=== PATIENT | male | born 1965 | race Caucasian/White ===

== ENCOUNTER 2021-06-27 23:45 | Emergency (ER) | payer OTHER ==
[2021-06-28 02:02] LABS: BASOPHIL 0.1 % (0-2); EOSINOPHIL 0.1 & (0-5); HCT 39.7 % (42.0-52.0); HGB 13.6 g/dl (13.2-18.0); LYMPHOCYTE 11.3 % (15-48); MCH 31.7 pg (25.0-31.0); MCHC 34.3 g/dL (32.0-36.0); MCV 92.5 fL (78.0-100.0); MONOCYTE 7.8 % (0-12); MPV 10.2 fL (6.0-9.5); NEUTROPHIL 80.6 % (41-80); PLT 162 K/uL (150-400); RBC 4.29 M/uL (4.70-6.00); RDW 12.4 % (11.5-14.0)
[2021-06-28 02:12] LABS: ALBUMIN 3.5 g/dL (3.4-5.0); BILIRUBIN - TOTAL 0.4 mg/dL (0.2-1.0); BUN/CREAT RATIO (CALC) 14.1 RATIO; CREATININE 0.92 mg/dL (0.67-1.17); GLOBULIN (CALCULATION) 3.5 g/dL; POTASSIUM 4.2 mmol/L (3.5-5.1)
[2021-06-28 02:17] LABS: LACTIC ACID 1.1 mmol/L (0.4-1.9)
[2021-06-28] MEDS ORDERED: IBUPROFEN800 MG PO ×2 (03:34→03:42)
[2021-06-28] MEDS ORDERED: NORCO 5-325 TA1 EACH PO ×2 (03:34→03:42)
[2021-06-28] MEDS ORDERED: ZITHROMAX500 MG PO ×2 (03:34→03:42)
[2021-06-28] MEDS ORDERED: ONDANSETRON ODT4 MG SL ×2 (03:34→03:42)
[2021-06-28] MEDS ORDERED: PULMICORT FLE180 MCG INH ×2 (03:34→03:42)
[2021-06-28] MEDS ORDERED: VENTOLIN HFA IN18 GM INH ×2 (03:34→03:42)
== END 2021-06-28 03:50 | disposition home or self-care (01) ==
LOC: FER 23:45
PROVIDERS: Emergency Medicine Emergency Medical Services
DX: U07.1 COVID-19 (principal); J12.82 Pneumonia due to coronavirus disease 2019
CPT/HCPCS: 36415; 71045; 80053; 83605; 84484; 85025; 85379; 93005; 94640; 94664; J1885; J2270; J2405; J7120

== ENCOUNTER 2021-06-30 15:41 | Inpatient (IN) | payer OTHER ==
[~2021-06-30] VITALS: Ht 177.8 cm; Wt 79.8 kg
[~2021-06-30 15:41] MED LIST: IBUPROFEN800 MG PO; NORCO 5-325 TA1 EACH PO; ONDANSETRON ODT4 MG SL; PULMICORT FLE180 MCG INH; VENTOLIN HFA IN18 GM INH; ZITHROMAX500 MG PO
[2021-06-30 18:28] LABS: BASOPHIL 0.2 % (0-2); EOSINOPHIL 0 % (0-5); HCT 42.5 % (42.0-52.0); HGB 14.1 g/dl (13.2-18.0); MCH 31.5 pg (25.0-31.0); MCHC 33.2 g/dL (32.0-36.0); MCV 95.1 fL (78.0-100.0); NEUTROPHIL 84.4 % (41-80); NRBC 0; PLT 166 K/uL (150-400); RBC 4.47 M/uL (4.70-6.00); RDW 12.9 % (11.5-14.0); WBC 9.5 K/uL (4.0-10.5)
[2021-06-30 18:44] LABS: BUN 15 mg/dL (7-18); BUN/CREAT RATIO (CALC) 14.9 RATIO; C-REACTIVE PROTEIN >18.00 mg/dL (<=0.90); CHLORIDE 104 mmol/L (98-107); CO2 (BICARBONATE) 28 mmol/L (21-32); CREATININE 1.01 mg/dL (0.67-1.17); GLUCOSE 107 mg/dL (74-106); POTASSIUM 4.1 mmol/L (3.5-5.1)
[2021-07-01 05:49] LABS: BASOPHIL 0.1 % (0-2); EOSINOPHIL 0 % (0-5); HGB 12.9 g/dl (13.2-18.0); LYMPHOCYTE 5.8 % (15-48); MCH 31.3 pg (25.0-31.0); MCHC 33.1 g/dL (32.0-36.0); MCV 94.7 fL (78.0-100.0); NEUTROPHIL 90.6 % (41-80); NRBC 0; PLT 176 K/uL (150-400); RBC 4.12 M/uL (4.70-6.00); WBC 7.9 K/uL (4.0-10.5)
[2021-07-01 06:40] LABS: ALBUMIN 2.6 g/dL (3.4-5.0); ALKALINE PHOSHATASE 53 U/L (46-116); ALT 78 U/L (16-63); AST 69 U/L (15-37); BILIRUBIN - TOTAL 0.3 mg/dL (0.2-1.0); BUN 13 mg/dL (7-18); C-REACTIVE PROTEIN >18.00 mg/dL (<=0.90); CHLORIDE 105 mmol/L (98-107); CO2 (BICARBONATE) 27 mmol/L (21-32); CREATININE 0.81 mg/dL (0.67-1.17); GLOBULIN (CALCULATION) 3.7 g/dL; GLUCOSE 150 mg/dL (74-106); LDH 356 U/L (85-227); POTASSIUM 4.8 mmol/L (3.5-5.1); TOTAL PROTEIN 6.3 g/dL (6.4-8.2)
--- NOTE | 2021-07-02 04:59 | NUR ---
PATIENT DESATED TO 87% AT 199907/01/21 ON 2LNC. OXYEGEN WAS INCREASED ON NC WITH NO IMPROVEMENT. RT WAS CONSULTED AND PATIENT WAS PLACED ON A VENTI MASK AT 50% AT 15L WITH IMPROVEMENT IN SATURATION TO 94%. PATIENT REMAINED STABLE TIL 0445 ON 07/02/21 WHEN HE BEGAN DESATING TO 74% WITH COUGHING. RT WAS CONSULTED AGAIN AND AN ALBUTEROL TX WAS GIVEN WITH IMPROVEMENT. PATIENT CONTINUED TO DESAT AND THEN STABILIZE IN BETWEEN COUGHING "FITS." CASEY DUNCAN APRN INFORMED OF PATIENT CONDITION AND UPDATED THROUGHOUT THE NIGHT. PATIENT TO TRANSFER TO TCU FOR HIGHER LEVEL OF CARE BASED ON OXYGEN NEED PROGRESSION.
[2021-07-03 10:25] LABS: BASOPHIL 0.1 % (0-2); EOSINOPHIL 0 % (0-5); HGB 13.6 g/dl (13.2-18.0); LYMPHOCYTE 3.6 % (15-48); MCHC 32.4 g/dL (32.0-36.0); MCV 95.7 fL (78.0-100.0); MONOCYTE 5.2 % (0-12); MPV 9.4 fL (6.0-9.5); NEUTROPHIL 89.9 % (41-80); NRBC 0; PLT 293 K/uL (150-400); RBC 4.39 M/uL (4.70-6.00); RDW 13.3 % (11.5-14.0); WBC 15.1 K/uL (4.0-10.5)
[2021-07-03 10:40] LABS: BUN/CREAT RATIO (CALC) 28.4 RATIO; C-REACTIVE PROTEIN 16.4 mg/dL (<=0.90); CREATININE 0.81 mg/dL (0.67-1.17); POTASSIUM 4.6 mmol/L (3.5-5.1)
[2021-07-04 07:03] LABS: ALBUMIN 2.5 g/dL (3.4-5.0); BILIRUBIN - TOTAL 0.6 mg/dL (0.2-1.0); BUN/CREAT RATIO (CALC) 35.3 RATIO; C-REACTIVE PROTEIN 12.2 mg/dL (<=0.90); CREATININE 0.68 mg/dL (0.67-1.17); GLOBULIN (CALCULATION) 4.3 g/dL; POTASSIUM 4.2 mmol/L (3.5-5.1); TOTAL PROTEIN 6.8 g/dL (6.4-8.2)
--- NOTE | 2021-07-06 01:53 | NUR ---
PATIENT BREATHING 57 RESPIRATIONS A MINUTE LAYING ON BACK, MASTER MACHINIST NOTIFIED. RESPIRATORY CALLED. PATIENT TURNED BACK TO PRONE INDEPENDENTLY, O2 IS NOW 94%.
[2021-07-06 06:19] LABS: BASOPHIL 0.9 % (0-2); EOSINOPHIL 0 % (0-5); HCT 43.8 % (42.0-52.0); HGB 14.7 g/dl (13.2-18.0); MCHC 33.6 g/dL (32.0-36.0); MCV 92.4 fL (78.0-100.0); MONOCYTE 5.3 % (0-12); MPV 9.4 fL (6.0-9.5); NEUTROPHIL 81.5 % (41-80); NRBC 0; PLT 260 K/uL (150-400); RBC 4.74 M/uL (4.70-6.00); RDW 12.7 % (11.5-14.0); WBC 19.5 K/uL (4.0-10.5)
[2021-07-06 06:39] LABS: ALBUMIN 2.6 g/dL (3.4-5.0); BILIRUBIN - TOTAL 0.9 mg/dL (0.2-1.0); BUN/CREAT RATIO (CALC) 31.9 RATIO; C-REACTIVE PROTEIN 4.3 mg/dL (<=0.90); CREATININE 0.72 mg/dL (0.67-1.17); GLOBULIN (CALCULATION) 3.9 g/dL; POTASSIUM 4.8 mmol/L (3.5-5.1); TOTAL PROTEIN 6.5 g/dL (6.4-8.2)
--- NOTE | 2021-07-06 19:35 | NUR ---
1300-DR. DYER DISCUSSED WITH PT AT LENGTH ABOUT RESP. STATUS. AND NEED FOR INTUBATION PRIOR TO IT BECOMING A EMERGENT SITUATION. 1315- PT FACETIME WITH AND FAMILY, PT SPENT SOME TIME ON FACETIME VIA HIS PHONE. 1435-PREPARING PT FOR INTUBATION, DR. DYER, LEODAN RT, GISSELLE RT AND MYSELF AT BEDSIDE. [place] RN AT DOOR TAKING DOWN TIMES 1443 30MG ETOMATE IVP GIVEN PT BEGAN TO BE BAGGED BY RT 1445 150MG IVP SUCC GIVEN [address] DYER W/O DIFFICULTY WITH SIZE 7 ET TUBE/25 AT THE LIP. PT O2 SAT 66% AND IMMEDIATLY BAGGED WITH O2 SAT INCREASING TO 98% 1449 DIPRAVAN GTT STARTED AT 25MCG/14.[address] DYER ORDERS. 1455 FENTANLY GTT STARTED AT 200 MCG OR 20ML PER DR. DYER ORDERS 1457. PT COUGHING/FIGHTING THE VENT, DESATING TO 80% 1458 VERSED 5MG IVP GIVEN, PT WAS ABLE TO RELAX AND SAT INCREASED BACK TO 94% 1501 PT COUGHING/ FIGHTING VENT DESATING TO LOW 80'S. 1502 VERSED 5MG IVP GIVEN ORDERED INCREASED BOTH FENTANYL 300MCG AND DIPRAVAN TO 50MCG GTTS PER 'S ORDERS BP 90/40 ABIEL PUSH OF 100MCG GIVEN PER DR. DYER. BP IMPROVED TO 111/59 10MG VEC IVP GIVEN 1524 PLACED AND OG TUBE/GREEN COLOR BOWEL ASPIRATED/AUSCULTATED FOR PLACEMENT 1530 VECURONIUM GTT STARTED AT 0.8MCG/46.1ML/HR 1540 TRIPLE LUMEN CENTRAL LINE PLACED BY DR. DYER. 1548 STAT CHEST XRAY DONE FOR VERFICATION OF ET TUBE/CENTRAL LINE AND OG PLACEMENT 1558 DR. DYER OKAY'S USE OF CENTRAL LINE AWAITING OFFICAL READING FOR OG TUBE USE 1608 COLMENARES CATH PLACED
--- NOTE | 2021-07-06 20:23 | NUR ---
1642- RUPA INSERTED BY DR. DYER AT BEDSIDE TO ASSIST. 1700 BIS MONTIOR READING 40. TOF 1/4 DECREASED VEC TO 0.6ML34.6 1745 BIX MONITOR READING 44. TOB 2/4 WILL CONTINUE TO MONITOR CLOSELY
--- NOTE | 2021-07-06 20:27 | NUR ---
6336- SPOKE WITH PT AND UPDATED ON PT STATUS
[2021-07-07 06:04] LABS: BASOPHIL 0.6 % (0-2); EOSINOPHIL 0.1 % (0-5); HCT 38.7 % (42.0-52.0); HGB 12.6 g/dl (13.2-18.0); MCH 31.3 pg (25.0-31.0); MCHC 32.6 g/dL (32.0-36.0); MCV 96.3 fL (78.0-100.0); MONOCYTE 5.1 % (0-12); MPV 9.9 fL (6.0-9.5); NEUTROPHIL 84.2 % (41-80); NRBC 0; PLT 188 K/uL (150-400); RBC 4.02 M/uL (4.70-6.00); RDW 13.2 % (11.5-14.0); WBC 17.9 K/uL (4.0-10.5)
[2021-07-07 06:29] LABS: BUN/CREAT RATIO (CALC) 28.2 RATIO; CREATININE 0.78 mg/dL (0.67-1.17); POTASSIUM 4.8 mmol/L (3.5-5.1)
[2021-07-08 04:56] LABS: BASOPHIL 0.1 % (0-2); EOSINOPHIL 0.1 % (0-5); HCT 37.3 % (42.0-52.0); HGB 12.1 g/dl (13.2-18.0); LYMPHOCYTE 4.3 % (15-48); MCH 31.2 pg (25.0-31.0); MCHC 32.4 g/dL (32.0-36.0); MCV 96.1 fL (78.0-100.0); MONOCYTE 5.4 % (0-12); MPV 10.2 fL (6.0-9.5); NEUTROPHIL 78.3 % (41-80); NRBC 0; PLT 234 K/uL (150-400); RBC 3.88 M/uL (4.70-6.00); RDW 13.4 % (11.5-14.0); WBC 18.2 K/uL (4.0-10.5)
[2021-07-08 05:16] LABS: ALBUMIN 2.1 g/dL (3.4-5.0); BILIRUBIN - TOTAL 0.6 mg/dL (0.2-1.0); BUN/CREAT RATIO (CALC) 32.4 RATIO; CREATININE 0.68 mg/dL (0.67-1.17); MAGNESIUM 2.3 mg/dL (1.8-2.4); POTASSIUM 4.5 mmol/L (3.5-5.1); TOTAL PROTEIN 6.1 g/dL (6.4-8.2)
[2021-07-09 04:17] LABS: BASOPHIL 0.8 % (0-2); EOSINOPHIL 0.2 % (0-5); HCT 33.5 % (42.0-52.0); HGB 10.9 g/dl (13.2-18.0); LYMPHOCYTE 3.4 % (15-48); MCH 31.1 pg (25.0-31.0); MCHC 32.5 g/dL (32.0-36.0); MCV 95.7 fL (78.0-100.0); MONOCYTE 7.1 % (0-12); MPV 9.9 fL (6.0-9.5); NRBC 0; PLT 244 K/uL (150-400); RDW 13.1 % (11.5-14.0); WBC 19.5 K/uL (4.0-10.5)
[2021-07-09 04:33] LABS: BUN 22 mg/dL (7-18); BUN/CREAT RATIO (CALC) 31.9 RATIO; CHLORIDE 103 mmol/L (98-107); CO2 (BICARBONATE) 33 mmol/L (21-32); CREATININE 0.69 mg/dL (0.67-1.17); GLUCOSE 147 mg/dL (74-106); MAGNESIUM 2.3 mg/dL (1.8-2.4); PHOSPHORUS 2.8 mg/dL (2.6-4.7)
--- NOTE | 2021-07-09 07:16 | NUR ---
0716- SPOKE WITH PT DAUGHTER JOSELINE ABOUT PT STATUS. PT IS INTUBATED & SEDATED ON DIPRAVAN, FENTANYL & VECRONIUM. PT IS NOT ALERT BUT WILL MOVE TOUNGE AROUND IN MOUTH. VS ARE 129/71 (89), HR 71, RR 28, 02 90%, ABP 119/65 (82), BIS 31. PT ON X2DESYX, BILAT EXTREMITIES ELEVATED ON PILLOWS, SCD;S PLACED, TUBE FEEDS @ 55ML/HR.
--- NOTE | 2021-07-09 14:10 | NUR ---
Nutrition Follow Up: Pt continues sedated/intubated with continuous TF. Jevity 1.2 running at goal of 55ml/hr and proteinex ONS BID. Wt noted on 07/09/21 is 212#, possible discrepancy with wt hx during this admission. No new n/v/d/c indicated, BS noted as hypoactive, LBM 07/06/21. No new wounds of concern, trace edema to BUE noted. No additional recommendation att. Continue current nutrition POC. RD will follow up 2-3x per week per protocol. ~Griselda Newman, MS, RDN, LD
[2021-07-09 23:43] LABS: BILIRUBIN NEGATIVE (NEGATIVE); BLOOD NEGATIVE Ery/uL (NEGATIVE); CLARITY CLEAR (CLEAR); COLOR YELLOW (YELLOW); GLUCOSE (U) NORMAL (NORMAL); LEUKOCYTES NEGATIVE Leu/uL (NEGATIVE); NITRITE NEGATIVE (NEGATIVE); PROTEIN NEGATIVE (NEGATIVE); SPECIFIC GRAVITY 1.025 (1.001-1.030)
[2021-07-09 23:49] LABS: URINARY RBC RARE
[2021-07-10 05:31] LABS: BASOPHIL 0 % (0-2); EOSINOPHIL 0.3 % (0-5); HCT 36.8 % (42.0-52.0); HGB 11.9 g/dl (13.2-18.0); LYMPHOCYTE 3.7 % (15-48); MCH 31.1 pg (25.0-31.0); MCHC 32.3 g/dL (32.0-36.0); MCV 96.1 fL (78.0-100.0); MONOCYTE 8.6 % (0-12); NEUTROPHIL 76.8 % (41-80); NRBC 0.1; PLT 349 K/uL (150-400); RBC 3.83 M/uL (4.70-6.00); RDW 13.2 % (11.5-14.0)
[2021-07-10 05:36] LABS: WBC 25.8 K/uL (4.0-10.5)
[2021-07-10 05:37] LABS: BUN/CREAT RATIO (CALC) 43.9 RATIO; C-REACTIVE PROTEIN 4.9 mg/dL (<=0.90); CREATININE 0.57 mg/dL (0.67-1.17); POTASSIUM 4.3 mmol/L (3.5-5.1)
[2021-07-11 04:38] LABS: BASOPHIL 0.1 % (0-2); EOSINOPHIL 0.6 % (0-5); HCT 37.6 % (42.0-52.0); HGB 12.1 g/dl (13.2-18.0); LYMPHOCYTE 3.7 % (15-48); MCH 31.2 pg (25.0-31.0); MCHC 32.2 g/dL (32.0-36.0); MCV 96.9 fL (78.0-100.0); MONOCYTE 11.6 % (0-12); MPV 10.1 fL (6.0-9.5); NEUTROPHIL 72.1 % (41-80); NRBC 0; PLT 372 K/uL (150-400); RBC 3.88 M/uL (4.70-6.00); RDW 13.4 % (11.5-14.0); WBC 22.6 K/uL (4.0-10.5)
[2021-07-11 05:05] LABS: BUN/CREAT RATIO (CALC) 37.3 RATIO; CREATININE 0.67 mg/dL (0.67-1.17); POTASSIUM 4.3 mmol/L (3.5-5.1)
[2021-07-12 03:20] LABS: BASOPHIL 0 % (0-2); EOSINOPHIL 0.1 % (0-5); HCT 37.9 % (42.0-52.0); HGB 12.3 g/dl (13.2-18.0); LYMPHOCYTE 3.9 % (15-48); MCH 31.4 pg (25.0-31.0); MCHC 32.5 g/dL (32.0-36.0); MCV 96.7 fL (78.0-100.0); MONOCYTE 10.8 % (0-12); MPV 9.6 fL (6.0-9.5); NRBC 0; PLT 419 K/uL (150-400); RBC 3.92 M/uL (4.70-6.00); RDW 13.4 % (11.5-14.0); WBC 26.6 K/uL (4.0-10.5)
[2021-07-12 03:44] LABS: BUN/CREAT RATIO (CALC) 44.8 RATIO; CREATININE 0.67 mg/dL (0.67-1.17); POTASSIUM 4.7 mmol/L (3.5-5.1)
[2021-07-12 10:38] LABS: BILIRUBIN NEGATIVE (NEGATIVE); BLOOD NEGATIVE Ery/uL (NEGATIVE); COLOR YELLOW (YELLOW); GLUCOSE (U) NORMAL (NORMAL); LEUKOCYTES NEGATIVE Leu/uL (NEGATIVE); NITRITE POSITIVE (NEGATIVE); PROTEIN NEGATIVE (NEGATIVE); SPECIFIC GRAVITY 1.025 (1.001-1.030)
[2021-07-12 10:40] LABS: CLARITY CLOUDY (CLEAR)
[2021-07-12 10:44] LABS: BACTERIA 4+; URINARY RBC RARE
[2021-07-13 03:38] LABS: BASOPHIL 0.5 % (0-2); EOSINOPHIL 0.2 % (0-5); HCT 33.9 % (42.0-52.0); HGB 10.7 g/dl (13.2-18.0); LYMPHOCYTE 3.3 % (15-48); MCH 30.8 pg (25.0-31.0); MCHC 31.6 g/dL (32.0-36.0); MCV 97.7 fL (78.0-100.0); MONOCYTE 12.5 % (0-12); MPV 9.7 fL (6.0-9.5); NEUTROPHIL 78.1 % (41-80); NRBC 0; PLT 331 K/uL (150-400); RBC 3.47 M/uL (4.70-6.00); RDW 13.3 % (11.5-14.0); WBC 19.9 K/uL (4.0-10.5)
[2021-07-13 04:32] LABS: BUN/CREAT RATIO (CALC) 44.8 RATIO; CREATININE 0.67 mg/dL (0.67-1.17); POTASSIUM 4.6 mmol/L (3.5-5.1)
[2021-07-14 04:27] LABS: BASOPHIL 0.3 % (0-2); EOSINOPHIL 0.2 % (0-5); HCT 35.6 % (42.0-52.0); HGB 11.2 g/dl (13.2-18.0); MCH 30.9 pg (25.0-31.0); MCHC 31.5 g/dL (32.0-36.0); MCV 98.1 fL (78.0-100.0); MONOCYTE 12.9 % (0-12); MPV 9.4 fL (6.0-9.5); NEUTROPHIL 79.2 % (41-80); NRBC 0; PLT 355 K/uL (150-400); RBC 3.63 M/uL (4.70-6.00); RDW 13.4 % (11.5-14.0)
[2021-07-14 04:28] LABS: WBC 25.3 K/uL (4.0-10.5)
[2021-07-14 05:20] LABS: BUN/CREAT RATIO (CALC) 48.4 RATIO; CREATININE 0.62 mg/dL (0.67-1.17); POTASSIUM 4.4 mmol/L (3.5-5.1)
[2021-07-15 04:52] LABS: BASOPHIL 0.2 % (0-2); EOSINOPHIL 0.1 % (0-5); HCT 33.1 % (42.0-52.0); HGB 10.4 g/dl (13.2-18.0); MCHC 31.4 g/dL (32.0-36.0); MCV 98.8 fL (78.0-100.0); MONOCYTE 13.6 % (0-12); NRBC 0; PLT 314 K/uL (150-400); RBC 3.35 M/uL (4.70-6.00); RDW 13.3 % (11.5-14.0); WBC 20.4 K/uL (4.0-10.5)
[2021-07-15 04:54] LABS: NEUTROPHIL 79.6 % (41-80)
[2021-07-15 05:09] LABS: BUN/CREAT RATIO (CALC) 45.8 RATIO; CREATININE 0.59 mg/dL (0.67-1.17)
--- NOTE | 2021-07-15 05:23 | NUR ---
PT O2 SATS 98-100 ALL NIGHT, PT FIO2 DECREASED TO 80% AT 0520. WILL CONTINUE TO MONITOR
[2021-07-16 03:41] LABS: BASOPHIL 0.2 % (0-2); EOSINOPHIL 0.3 % (0-5); HCT 31.9 % (42.0-52.0); HGB 10.2 g/dl (13.2-18.0); LYMPHOCYTE 4.7 % (15-48); MCH 31.2 pg (25.0-31.0); MCV 97.6 fL (78.0-100.0); MONOCYTE 11.9 % (0-12); MPV 9.8 fL (6.0-9.5); NEUTROPHIL 80.7 % (41-80); NRBC 0; PLT 307 K/uL (150-400); RBC 3.27 M/uL (4.70-6.00); RDW 13.4 % (11.5-14.0); WBC 18.6 K/uL (4.0-10.5)
[2021-07-16 04:14] LABS: ALBUMIN 2.1 g/dL (3.4-5.0); BILIRUBIN - TOTAL 0.9 mg/dL (0.2-1.0); BUN/CREAT RATIO (CALC) 43.1 RATIO; C-REACTIVE PROTEIN 3.9 mg/dL (<=0.90); CREATININE 0.58 mg/dL (0.67-1.17); GLOBULIN (CALCULATION) 3.9 g/dL; POTASSIUM 4.2 mmol/L (3.5-5.1)
--- NOTE | 2021-07-16 18:06 | NUR ---
DR DYER WAS IN ROOM WITH PATIENT AND PATIENT BEGAN TO HAVE TUBE FEEDING COMING OUT OF MOUTH PT WAS SUCTIONED TUBE FEEDING STOPPED, REPORTED THAT SUPPOSITORY WAS PREVIOUSLY GIVEN MANISHA ALSO ORDERED FOR MAGNESIUM CITRATE AND RELISTOR. PT DOES POINT TO ABDOMEN AND SHAKES HEAD YES WHEN ASKED IF HE IS IN PAIN.
--- NOTE | 2021-07-16 19:06 | NUR ---
PT PRESSED CALLED [facility]TON MOUTHED THAT HE NEEDED TO POOP, PATIENT WAS PLACED ON BEDPAN, PT HAD A LARGE VOMITING EPISODE DR DYER WAS NOTIFIED AND OG TUBE WAS HOOKED TO INTERTMITENT LOW WALL SUCTION PT HAD 2 BOWEL MOVEMENTS PT VITALS STABLE WILL CONTINUE TO MONITOR
--- NOTE | 2021-07-17 17:51 | NUR ---
1605- ORDERS FOR EXTUBATION. LEODAN RT AND MYSELF AT BEDSIDE. SUCTIONED PT PRIOR TO EXTUBATION.ET TUBE AND OG TUBE REMOVED AT SAME TIME. PT MOUTH SUCTIONED AND PLACED ON 50% VENTI. PT 02 SAT 94%
[2021-07-18 03:32] LABS: BUN/CREAT RATIO (CALC) 41.8 RATIO; C-REACTIVE PROTEIN 12.8 mg/dL (<=0.90); CREATININE 0.55 mg/dL (0.67-1.17); POTASSIUM 4.3 mmol/L (3.5-5.1)
[2021-07-18 03:44] LABS: BASOPHIL 0.4 % (0-2); EOSINOPHIL 0.2 % (0-5); HGB 10.5 g/dl (13.2-18.0); LYMPHOCYTE 3.4 % (15-48); MCH 31.2 pg (25.0-31.0); MCHC 31.8 g/dL (32.0-36.0); MCV 97.9 fL (78.0-100.0); MONOCYTE 10.3 % (0-12); NEUTROPHIL 83.9 % (41-80); NRBC 0; PLT 319 K/uL (150-400); RBC 3.37 M/uL (4.70-6.00); RDW 13.4 % (11.5-14.0); WBC 19.2 K/uL (4.0-10.5)
--- NOTE | 2021-07-19 08:22 | NUR ---
0823 DCD CENTRAL LINE AND ARTERIAL LINE THIS AM PER RN GLADYS PT TOLERATED WELL. PRESSURE DRESSING APPLIED.
--- NOTE | 2021-07-19 10:38 | NUR ---
1038 PT TRANSPORTED TO MED SURG PER MD ORDERED. PT TOLERATED WELL. REPORT GIVEN TO KASSY KEYES.
[2021-07-20 09:53] LABS: BASOPHIL 0.3 % (0-2); EOSINOPHIL 1.9 % (0-5); HCT 33.8 % (42.0-52.0); LYMPHOCYTE 5.3 % (15-48); MCH 31.1 pg (25.0-31.0); MCHC 32.5 g/dL (32.0-36.0); MCV 95.5 fL (78.0-100.0); MONOCYTE 12.9 % (0-12); MPV 9.2 fL (6.0-9.5); NEUTROPHIL 76.9 % (41-80); NRBC 0; PLT 266 K/uL (150-400); RBC 3.54 M/uL (4.70-6.00); RDW 13.6 % (11.5-14.0); WBC 17.3 K/uL (4.0-10.5)
[2021-07-20 10:09] LABS: BUN/CREAT RATIO (CALC) 36.7 RATIO; C-REACTIVE PROTEIN 5.2 mg/dL (<=0.90); CREATININE 0.6 mg/dL (0.67-1.17); MAGNESIUM 2.1 mg/dL (1.8-2.4)
--- NOTE | 2021-07-20 12:25 | NUR ---
LATE ENTRY NOTE: PICC LINE ORDER WAS PLACED ON 07/17/21 AND VERBAL CONSENT OBTAINED BY PRIMARY RN CHRIST PER PATIENTS . I ATTEMPTED TO INSERT PICC LINE USING STERILE PROCEDURE, WAS ABLE TO ACCESS THE BRACHIAL CEPHALIC VEIN, BLOOD RETURN PRESENT, WAS ABLE TO ADVANCE THE GUIDE WIRE WITH EASE, RETRACTED THE NEEDLE AND ADVANCED THE TRANSDUCER OVER THE GUIDEWIRE. GUIDEWIRE WAS REMOVED W/O DIFFICULTY. I PLACED A STERILE CAP ON THE END OF THE TRANSDUCER AND TRIMMED THE PICC TO MY PREVIOUS MEASUREMENT OF 46CM. STERILE CAP WAS REMOVED FROM THE TRANSDUCER AND INTERNAL TRANSDUCER REMOVED, PICC GUIDED THROUGH EXTERNAL TRANSDUCER AND WAS ABLE TO GUIDE PICC TO 15CM, BLOOD RETURN WAS PRESENT AND WAS ABLE TO FLUSH WITH EASE. WAS UNSUCCESSFUL AFTER MUTLIPLE ATTEMPTS TO FLOAT PICC IN TO SVC. PICC REMOVED AND MD NOTIFIED OF UNSUCCESSFUL PICC ATTEMPT. PATIENT WAS ON CPAP MODE ON VENTILATOR AND ON VERY LOW DOSE OF SEDATION AT TIME OF PICC ATTMEPMT. ABORTED PROCEDURE R/T PATIENT NOT ABLE TO TOLERATE SUPINE FLAT POSITION IN ATTEMPT TO GUIDE PICC IN.
--- NOTE | 2021-07-21 12:03 | NUR ---
1130 S/W BASE DRAW OPERATOR, OK FOR TO LEAVE TOMORROW AND COME BACK. PATIENT AND WIE NOTIFIED AND EDUCATED ON ISOLATION PRECAUTIONS AND GOOD MARINELLI HYGIENE
--- NOTE | 2021-07-21 14:55 | NUR ---
RD attired in PPE: entered room for nutritional education post COVID recovery. Patient and present; explained increased energy/protein needs and sources for adequate p.o. gave copy of [employer] menu; encouraged to call for ONS of choice. samples of Ensure pudding, Ensure Clear, and Ensure Enlive left in room for tasting. /pt verbalized understanding and appreciative of nutrition education.
[2021-07-23 06:33] LABS: BASOPHIL 0.3 % (0-2); EOSINOPHIL 3.1 % (0-5); HGB 12.3 g/dl (13.2-18.0); LYMPHOCYTE 11.4 % (15-48); MCH 31.8 pg (25.0-31.0); MCHC 33.2 g/dL (32.0-36.0); MCV 95.6 fL (78.0-100.0); MONOCYTE 10.5 % (0-12); MPV 9.6 fL (6.0-9.5); NEUTROPHIL 71.9 % (41-80); NRBC 0; PLT 300 K/uL (150-400); RBC 3.87 M/uL (4.70-6.00); RDW 14.6 % (11.5-14.0); WBC 14.9 K/uL (4.0-10.5)
[2021-07-23 06:46] LABS: BUN/CREAT RATIO (CALC) 26.4 RATIO; CREATININE 0.72 mg/dL (0.67-1.17); POTASSIUM 4.1 mmol/L (3.5-5.1)
[2021-07-23] MEDS ORDERED: VENTOLIN HFA IN18 GM INH (13:47)
[2021-07-23] MEDS ORDERED: DEXAMETHASONE 2M2 MG PO (13:47)
[2021-07-23] MEDS ORDERED: ELIQUIS5 MG PO (13:47)
[2021-07-23] MEDS ORDERED: CLONAZEPAM0.5 MG PO (13:47)
[2021-07-23] MEDS ORDERED: PROTONIX 40MG T40 MG PO (13:47)
== END 2021-07-23 15:30 | disposition home or self-care (01) | DRG 207 ==
LOC: FER 15:41 → FMS 20:38 → FTCU 20:38 → FMS 20:38 → FICU 20:38 → FMS 07-01 12:12 → FTCU 07-02 04:43 → FICU 07-06 10:34 → FMS 07-19 07:23
PROVIDERS: Allergy & Immunology Allergy; Internal Medicine; Nurse Practitioner; Nurse Practitioner Family; ADMIT Internal Medicine
PROC: 8E0ZXY6 Isolation (ICD-10-PCS; principal; 2021-06-30)
PROC: XW033E5 Introduction of Remdesivir Anti-infective into Peripheral Vein, Percutaneous Approach, New Technology Group 5 (ICD-10-PCS; 2021-07-01)
PROC: XW0DXM6 Introduction of Baricitinib into Mouth and Pharynx, External Approach, New Technology Group 6 (ICD-10-PCS; 2021-07-02)
PROC: 5A0945A Assistance with Respiratory Ventilation, 24-96 Consecutive Hours, High Flow/Velocity Cannula (ICD-10-PCS; 2021-07-04)
PROC: 5A1955Z Respiratory Ventilation, Greater than 96 Consecutive Hours (ICD-10-PCS; 2021-07-06)
PROC: 0BH17EZ Insertion of Endotracheal Airway into Trachea, Via Natural or Artificial Opening (ICD-10-PCS; 2021-07-06)
PROC: 02HV33Z Insertion of Infusion Device into Superior Vena Cava, Percutaneous Approach (ICD-10-PCS; 2021-07-06)
PROC: B548ZZA Ultrasonography of Superior Vena Cava, Guidance (ICD-10-PCS; 2021-07-06)
PROC: 03HY32Z Insertion of Monitoring Device into Upper Artery, Percutaneous Approach (ICD-10-PCS; 2021-07-06)
DX: U07.1 COVID-19 (principal); J12.82 Pneumonia due to coronavirus disease 2019; J80 Acute respiratory distress syndrome; J95.851 Ventilator associated pneumonia; J98.2 Interstitial emphysema; K56.41 Fecal impaction; L89.322 Pressure ulcer of left buttock, stage 2; L89.312 Pressure ulcer of right buttock, stage 2; Y95 Nosocomial condition
CPT/HCPCS: 36415; 36600; 70491; 71045; 71260; 71275; 80048; 80053; 81001; 82728; 82803; 82962; 83615; 83735; 84100; 84478; 84484; 85025; 85379; 86140; 87040; 87070; 87077; 87186; 87205; 94002; 94640; 94667; 94668; 94760; 94762; 97110; 97161; 97167; 97530; 97530-GP; 97535; C9113; C9399; J0360; J0456; J0692; J1100; J1650; J2060; J2250; J2370; J2405; J2550; J2704; J3010; J3480; J3490; J7030; J7040; J7050; J7120; J8540; Q9967; U0002